=== PATIENT | male | born 1980 | race Two or more races ===

== ENCOUNTER 2020-04-25 00:24 | Emergency (ER) | payer OTHER ==
[~2020-04-25] VITALS: Ht 175.3 cm; Wt 77.1 kg
[2020-04-25 00:25] VITALS: BP 129/62
--- NOTE | 2020-04-25 00:52 | NUR ---
AT THE BED SIDE
[2020-04-25] MEDS ORDERED: GELATIN SPONGE,ABSORBABLE 1 SPONGE SPONGE TP ONE (00:54)
[2020-04-25] MEDS ORDERED: TDAP [DIPH/PERTUSSIS/TET] 0.5 ML VIAL IM ONE ×2 (00:55→01:00)
--- NOTE | 2020-04-25 01:00 | NUR ---
EMT AT BED SIDE FOR WOUND CARE
--- NOTE | 2020-04-25 01:02 | NUR ---
R INDEX FINGER WOUND CLANED NAD DRIED BY EMT. GEL FOAM APPLIED AND COVERED W/ DD. NO BLEEDING NOTED. PT IS MEDICALLY STQABLE FOR D/C. Patient discharged to home in stable condition. Written and verbal after care instructions given. Patient verbalizes understanding of instruction.
== END 2020-04-25 01:04 | disposition home or self-care (01) ==
LOC: ER 00:27
DX: S61.211A Laceration without foreign body of left index finger without damage to nail, initial encounter (principal); W26.0XXA Contact with knife, initial encounter; Y93.89 Activity, other specified; Y92.89 Other specified places as the place of occurrence of the external cause; Y99.8 Other external cause status
CPT/HCPCS: 90471; 90715; 99283; A6403